=== PATIENT | male | born 1930 | race Two or more races ===

== ENCOUNTER 2017-04-25 02:02 | Inpatient (IN) | payer SELFPAY ==
[~2017-04-25] VITALS: Ht 177.8 cm; Wt 55.9 kg
[2017-04-25] MEDS ORDERED: ACETAMINOPHEN 325 MG TAB PO ONE ×2 (02:13→02:30)
[2017-04-25] MEDS ORDERED: IBUPROFEN 600 MG TAB PO ONE ×2 (02:16→02:30)
[2017-04-25 02:37] LABS: Basophils # (auto) 0 uL; Basophils % (auto) 0.3 % (0.0-2.0); CONDITION Y; Eosinophils # (auto) 0 uL; Eosinophils % (auto) 0.3 % (0.0-7.0); Hematocrit 40.1 % (41.0-53.0); Hemoglobin 13.6 g/dL (13.5-17.5); Lymphocytes # (auto) 2.2 uL; Lymphocytes % (auto) 19.1 % (10.0-50.0); Mean Corpuscular Hemoglobin 30.8 pg (28.0-32.0); Mean Corpuscular Hgb Conc. 33.9 g/dL (32.0-36.0); Mean Corpuscular Volume 90.9 fL (80.0-100.0); Mean Platelet Volume 7.6 fL (7.4-10.4); Monocytes # (auto) 0.2 uL; Monocytes % (auto) 1.6 % (0.0-12.0); Neutrophils # (auto) 9.1 uL; Neutrophils % (auto) 78.7 % (37.0-80.0); Platelet Count (auto) 201 10^3/uL (140-450); Red Cell Distribution Width 14.5 % (11.6-16.0); White Blood Cell 11.5 10^3/uL (4.4-10.8)
[2017-04-25 02:46] LABS: Allen Test Yes; Base Excess -2.4 mmol/L (-2.0-2.0); Blood 02Sat 88.4 % (96-100); Blood COHb 0.3 % (0.5-1.5); Blood MetHb 0.4 % (0.0-1.5); HHb 11.5 % (0.0-5.0); MODE ROOM AIR; O2Hb 87.8 % (94.0-97.0); PCO2 24.8 mmHg (35.0-45.0); PCO2(T) 27.5 mmHg (35.0-45.0); PO2 48.7 mmHg (80.0-100.0); PO2(T) 57.6 mmHg (80.0-100.0); Sample Type Arterial; pH 7.502 (7.350-7.450)
[2017-04-25 02:52] LABS: INR 0.98 (0.9-1.15); Partial Thromboplastin Time 24.3 sec (22.64-33.71); Prothrombin Time 10.7 sec (9.37-12.3)
[2017-04-25 02:56] LABS: Albumin 3.7 g/dL (3.4-5.0); Anion Gap 12 (5-15); Aspartate Aminotransferase 19 U/L (15-37); Blood Urea Nitrogen 19 mg/dL (7-18); Calcium 7.7 mg/dL (8.5-10.1); Carbon Dioxide 22 mmol/L (21-32); Chloride 110 mmol/L (98-107); GFR African American 80 mL/min; GFR Non-African American 66 mL/min; Glucose 150 mg/dL (74-106); Magnesium 1.8 mg/dL (1.6-2.6); Potassium 3.5 mmol/L (3.5-5.1); Sodium 144 mmol/L (136-145)
[2017-04-25 02:58] LABS: Lactic Acid w/Reflex 2.6 mmol/L (0.4-2.0)
[2017-04-25 03:01] LABS: Alkaline Phosphatase 135 U/L (45-117); Bilirubin, Total 0.4 mg/dL (0.2-1.0); Total Protein 7.2 g/dL (6.4-8.2)
[2017-04-25 03:05] LABS: B-Type Natriuretic Peptide 109.4 pg/mL (0-100)
[2017-04-25 03:26] LABS: REFLEX LACTIC ACID YES OR NO YES
[2017-04-25 03:28] LABS: Temperature: 22.9 C (20.0-25.0)
[2017-04-25] MEDS ORDERED: SODIUM CHLORIDE 0.9% 1,000 ML IV ONE (04:00)
[2017-04-25] MEDS ORDERED: cefTRIAXone 1GM/50ML D5W 50 ML IV ONE (04:00)
[2017-04-25 04:57] LABS: Urine RBC None Seen /hpf (0 - 3)
[2017-04-25 05:25] LABS: Urine Bilirubin Negative (Negative); Urine Blood Negative /uL (Negative); Urine Color Yellow (Yellow); Urine Glucose Normal (Normal); Urine Ketone Negative (Negative); Urine Nitrite Negative (Negative); Urine Urobilinogen Normal (Negative)
[2017-04-25] MEDS ORDERED: HYDROcodone-ACET 5/325MG TAB PO PRN (09:00)
[2017-04-25] MEDS ORDERED: PROMETHAZINE HCL 25 MG/ML 1ML IV PRN (09:00)
[2017-04-25] MEDS ORDERED: LORazepam 0.5 MG TAB PO PRN (09:00)
[2017-04-25] MEDS ORDERED: TEMAZEPAM 15 MG CAP PO PRN (09:00)
[2017-04-25] MEDS ORDERED: LACTULOSE 20Gm/30ML SOLN PO PRN ×2 (09:00→09:45)
[2017-04-25] MEDS ORDERED: NITROGLYCERIN 0.4 MG SL TAB SL PRN (09:00)
[2017-04-25] MEDS ORDERED: ALBUTEROL SULF 2.5 MG/0.5ML(0.5%) NEB SOLN NEB PRN (09:00)
[2017-04-25] MEDS ORDERED: ACETAMINOPHEN 500 MG TAB PO PRN (09:00)
[2017-04-25] MEDS ORDERED: MORPHINE SULF INJ 2 MG/ML SYRINGE 1ML IV PRN ×2 (09:00)
[2017-04-25 09:16] VITALS: BP 120/65
[2017-04-25] MEDS: SODIUM CHLORIDE 0.9% 1,000 ML IV SCH ×2 (09:30→21:36)
[2017-04-25] MEDS: cefTRIAXone 1GM/50ML D5W 50 ML IV SCH (09:32)
[2017-04-25 10:20] VITALS: BP 150/69
[2017-04-25 13:03] VITALS: BP 156/65
[2017-04-25] MEDS: IPRATROPIUM BROM 0.5 MG/2.5ML INH SOL NEB SCH ×2 (13:25→18:52)
[2017-04-25] MEDS: ALBUTEROL SULF 2.5 MG/0.5ML(0.5%) NEB SOLN NEB SCH ×2 (13:25→18:52)
[2017-04-25] MEDS: AZITHROMYCIN 500MG/D5W 250ML 250 ML IV SCH (14:32)
[2017-04-25] MEDS: ASPirin 81 mg TAB PO SCH (14:32)
[2017-04-25] MEDS: ENOXAPARIN SOD 40 MG/0.4 ML SYRINGE SC SCH (14:32)
[2017-04-25] MEDS: CARVEDILOL 3.125 MG TAB PO SCH ×2 (14:35→21:34)
[2017-04-25 17:00] VITALS: BP 138/67
[2017-04-25 22:00] VITALS: BP 135/62
[2017-04-26] MEDS: ALBUTEROL SULF 2.5 MG/0.5ML(0.5%) NEB SOLN NEB SCH ×4 (00:51→18:35)
[2017-04-26] MEDS: IPRATROPIUM BROM 0.5 MG/2.5ML INH SOL NEB SCH ×4 (00:51→18:36)
[2017-04-26 05:30] VITALS: BP 127/66
[2017-04-26 06:16] LABS: Basophils # (auto) 0 uL; Basophils % (auto) 0.2 % (0.0-2.0); CONDITION Y; Eosinophils # (auto) 0 uL; Hematocrit 36.6 % (41.0-53.0); Hemoglobin 12.5 g/dL (13.5-17.5); Lymphocytes # (auto) 0.9 uL; Lymphocytes % (auto) 8.8 % (10.0-50.0); Mean Corpuscular Hemoglobin 31.2 pg (28.0-32.0); Mean Corpuscular Hgb Conc. 34.2 g/dL (32.0-36.0); Mean Corpuscular Volume 91.5 fL (80.0-100.0); Mean Platelet Volume 8.1 fL (7.4-10.4); Monocytes # (auto) 0.7 uL; Monocytes % (auto) 6.8 % (0.0-12.0); Neutrophils # (auto) 8.7 uL; Neutrophils % (auto) 84.2 % (37.0-80.0); Platelet Count (auto) 163 10^3/uL (140-450); Red Cell Distribution Width 14.7 % (11.6-16.0); White Blood Cell 10.3 10^3/uL (4.4-10.8)
[2017-04-26 06:44] LABS: Albumin 2.9 g/dL (3.4-5.0); BUN/Creatinine Ratio 17.4; Calcium 7.6 mg/dL (8.5-10.1); Potassium 3.3 mmol/L (3.5-5.1)
[2017-04-26 06:47] LABS: Bilirubin, Total 0.6 mg/dL (0.2-1.0); Total Protein 6.1 g/dL (6.4-8.2)
[2017-04-26 06:50] LABS: B-Type Natriuretic Peptide 277.65 pg/mL (0-100); Temperature: 22.5 C (20.0-25.0)
[2017-04-26 07:00] VITALS: BP 137/55
[2017-04-26 08:00] VITALS: BP 137/55
[2017-04-26] MEDS ORDERED: cefTRIAXone 1GM/50ML D5W 50 ML IV SCH (09:00)
[2017-04-26] MEDS: cefTRIAXone 1GM/50ML D5W 50 ML IV SCH (09:54)
[2017-04-26] MEDS: AZITHROMYCIN 500MG/D5W 250ML 250 ML IV SCH (10:07)
[2017-04-26] MEDS: ASPirin 81 mg TAB PO SCH (10:08)
[2017-04-26] MEDS: CARVEDILOL 3.125 MG TAB PO SCH (10:09)
[2017-04-26] MEDS: ENOXAPARIN SOD 40 MG/0.4 ML SYRINGE SC SCH (10:10)
[2017-04-26 11:00] VITALS: BP 151/88
[2017-04-26] MEDS: SODIUM CHLORIDE 0.9% 1,000 ML IV SCH (11:30)
[2017-04-26] MEDS ORDERED: POTASSIUM CHL 20 Meq TABLET PO ONE (14:30)
[2017-04-26] MEDS ORDERED: amLODIPine BESYLATE 5 MG TAB PO ONE (14:30)
[2017-04-26] MEDS ORDERED: IOHEXOL 300 MG/ML 100ML BOTTLE IJ ONE (15:04)
[2017-04-26 16:29] VITALS: BP 160/71
[2017-04-26 22:12] VITALS: BP 135/64
[2017-04-27] MEDS: ALBUTEROL SULF 2.5 MG/0.5ML(0.5%) NEB SOLN NEB SCH ×4 (00:01→19:45)
[2017-04-27] MEDS: IPRATROPIUM BROM 0.5 MG/2.5ML INH SOL NEB SCH ×4 (00:01→19:45)
[2017-04-27 05:05] VITALS: BP 153/68
[2017-04-27] MEDS: SODIUM CHLORIDE 0.9% 1,000 ML IV SCH (05:06)
[2017-04-27 05:28] LABS: BUN/Creatinine Ratio 13.9; Calcium 7.5 mg/dL (8.5-10.1); Potassium 3.3 mmol/L (3.5-5.1)
[2017-04-27 09:01] VITALS: BP 140/70
[2017-04-27] MEDS: ENOXAPARIN SOD 40 MG/0.4 ML SYRINGE SC SCH (09:46)
[2017-04-27] MEDS: ASPirin 81 mg TAB PO SCH (09:46)
[2017-04-27] MEDS: cefTRIAXone 1GM/50ML D5W 50 ML IV SCH (09:46)
[2017-04-27] MEDS: amLODIPine BESYLATE 5 MG TAB PO SCH (09:47)
[2017-04-27] MEDS: AZITHROMYCIN 500MG/D5W 250ML 250 ML IV SCH (09:47)
[2017-04-27] MEDS ORDERED: POTASSIUM CHL 20 Meq TABLET PO ONE (10:45)
[2017-04-27] MEDS ORDERED: LORazepam 2MG/ML-1ML VIAL IV ONE (11:00)
[2017-04-27 12:45] LABS: INR 1.06 (0.9-1.15); Partial Thromboplastin Time 37.9 sec (22.64-33.71); Prothrombin Time 11.6 sec (9.37-12.3)
[2017-04-27 13:00] VITALS: BP 134/66
[2017-04-27 17:15] VITALS: BP 144/47
[2017-04-27] MEDS: TAMSULOSIN HYDROCHLORIDE 0.4 MG CAP PO SCH (17:44)
[2017-04-27 20:00] VITALS: BP 130/69
[2017-04-27 22:00] VITALS: BP 130/69
[2017-04-28] VITALS (8 sets, daily range): BP systolic 127–153; BP diastolic 56–81
[2017-04-28 06:42] LABS: Potassium 3.5 mmol/L (3.5-5.1)
[2017-04-28 06:48] LABS: BUN/Creatinine Ratio 16.3; Calcium 8.1 mg/dL (8.5-10.1)
[2017-04-28] MEDS: ALBUTEROL SULF 2.5 MG/0.5ML(0.5%) NEB SOLN NEB SCH ×4 (06:55→19:21)
[2017-04-28] MEDS: IPRATROPIUM BROM 0.5 MG/2.5ML INH SOL NEB SCH ×4 (06:55→19:21)
[2017-04-28] MEDS: cefTRIAXone 1GM/50ML D5W 50 ML IV SCH (08:58)
[2017-04-28] MEDS: amLODIPine BESYLATE 5 MG TAB PO SCH (09:44)
[2017-04-28] MEDS: ASPirin 81 mg TAB PO SCH (09:44)
[2017-04-28] MEDS: ENOXAPARIN SOD 40 MG/0.4 ML SYRINGE SC SCH (09:45)
[2017-04-28] MEDS: TAMSULOSIN HYDROCHLORIDE 0.4 MG CAP PO SCH (17:20)
[2017-04-29] MEDS: ALBUTEROL SULF 2.5 MG/0.5ML(0.5%) NEB SOLN NEB SCH ×4 (00:41→18:05)
[2017-04-29] MEDS: IPRATROPIUM BROM 0.5 MG/2.5ML INH SOL NEB SCH ×4 (00:41→18:05)
[2017-04-29 05:41] VITALS: BP 120/59
[2017-04-29 08:34] VITALS: BP 126/68
[2017-04-29] MEDS: cefTRIAXone 1GM/50ML D5W 50 ML IV SCH (08:49)
[2017-04-29] MEDS: ENOXAPARIN SOD 40 MG/0.4 ML SYRINGE SC SCH (10:06)
[2017-04-29] MEDS: amLODIPine BESYLATE 5 MG TAB PO SCH (10:07)
[2017-04-29] MEDS: ASPirin 81 mg TAB PO SCH (10:07)
[2017-04-29 13:00] VITALS: BP 129/63
[2017-04-29 17:02] VITALS: BP 138/69
[2017-04-29] MEDS: TAMSULOSIN HYDROCHLORIDE 0.4 MG CAP PO SCH (17:47)
[2017-04-29 20:00] VITALS: BP 151/74
[2017-04-29 21:41] VITALS: BP 151/74
[2017-04-30] MEDS: IPRATROPIUM BROM 0.5 MG/2.5ML INH SOL NEB SCH ×2 (00:11→05:43)
[2017-04-30] MEDS: ALBUTEROL SULF 2.5 MG/0.5ML(0.5%) NEB SOLN NEB SCH ×2 (00:11→05:44)
[2017-04-30 05:00] VITALS: BP 126/67
[2017-04-30 05:08] LABS: Basophils # (auto) 0 uL; Basophils % (auto) 0.4 % (0.0-2.0); CONDITION Y; Eosinophils # (auto) 0.1 uL; Eosinophils % (auto) 1.7 % (0.0-7.0); Hematocrit 37.4 % (41.0-53.0); Hemoglobin 12.8 g/dL (13.5-17.5); Lymphocytes # (auto) 1.8 uL; Lymphocytes % (auto) 22.2 % (10.0-50.0); Mean Corpuscular Hemoglobin 31.4 pg (28.0-32.0); Mean Corpuscular Hgb Conc. 34.3 g/dL (32.0-36.0); Mean Corpuscular Volume 91.5 fL (80.0-100.0); Mean Platelet Volume 7.5 fL (7.4-10.4); Neutrophils # (auto) 4.9 uL; Neutrophils % (auto) 62.7 % (37.0-80.0); Platelet Count (auto) 239 10^3/uL (140-450); Red Cell Distribution Width 14.5 % (11.6-16.0); White Blood Cell 7.9 10^3/uL (4.4-10.8)
[2017-04-30 08:00] VITALS: BP 129/64
[2017-04-30 08:30] VITALS: BP 129/64
[2017-04-30] MEDS: cefTRIAXone 1GM/50ML D5W 50 ML IV SCH (08:31)
[2017-04-30] MEDS: amLODIPine BESYLATE 5 MG TAB PO SCH (09:52)
[2017-04-30] MEDS: ENOXAPARIN SOD 40 MG/0.4 ML SYRINGE SC SCH (09:52)
[2017-04-30] MEDS: ASPirin 81 mg TAB PO SCH (09:52)
[2017-04-30] MEDS ORDERED: ASPI81CH43 PO (10:29)
[2017-04-30] MEDS ORDERED: TAM04C PO (10:29)
[2017-04-30] MEDS ORDERED: LEVO-28 PO (10:29)
[2017-04-30] MEDS ORDERED: AML5T PO (10:29)
[2017-04-30 10:44] VITALS: BP 129/64
== END 2017-04-30 11:30 | disposition home or self-care (01) | DRG 871 ==
LOC: ER 02:02 → TELE 02:03 → TELE-E-ADS 10:18 → TELE-WESTW 13:03 → WEST WING 04-27 11:03
PROVIDERS: ADMIT Internal Medicine; ATTEND Internal Medicine
DX: A41.4 Sepsis due to anaerobes (principal); J69.0 Pneumonitis due to inhalation of food and vomit; M48.54XA Collapsed vertebra, not elsewhere classified, thoracic region, initial encounter for fracture; J98.11 Atelectasis; F17.210 Nicotine dependence, cigarettes, uncomplicated; I50.9 Heart failure, unspecified; I70.0 Atherosclerosis of aorta; K57.30 Diverticulosis of large intestine without perforation or abscess without bleeding; K76.89 Other specified diseases of liver; I11.0 Hypertensive heart disease with heart failure; N40.0 Benign prostatic hyperplasia without lower urinary tract symptoms; W14.XXXA Fall from tree, initial encounter
CPT/HCPCS: 36415; 36600; 71010; 71020; 71260; 74177; 76705; 80048; 80053; 81001; 82550; 82805; 83605; 83735; 83880; 84132; 84439; 84443; 84481; 84484; 85025; 85379; 85610; 85652; 85730; 86141; 87040; 87070; 87077; 87086; 87186; 87205; 93005; 94640; 96365; J0696